=== PATIENT | female | born 2000 | race Hispanic/Latino ===

== ENCOUNTER 2023-01-10 20:11 | Inpatient (IN) | payer MEDICAID, OTHER ==
[2023-01-10] MEDS ORDERED: hydrALAZINE 20 MG/ML VIAL SLOW IVP PRN (20:35)
[2023-01-10 21:09] VITALS: BMI 28.7
[2023-01-10] MEDS: Lactated Ringer's 1,000 ML IV SCH (21:48)
[2023-01-10] MEDS ORDERED: Lactated Ringer's 1,000 ML IV SCH ×2 (22:00→23:30)
[2023-01-10] MEDS ORDERED: fentaNYL 50 mcg/mL 1 mL Vial ONE (23:29)
[2023-01-10] MEDS ORDERED: fentaNYL 50 mcg/mL 1 mL Vial SLOW IVP SCH (23:45)
[2023-01-10] MEDS ORDERED: Carboprost 250 MCG/ML AMP IM PRN (23:56)
[2023-01-10] MEDS ORDERED: Tranexamic Acid 1,000 MG/10 ML VIAL IVP PRN (23:56)
[2023-01-10] MEDS ORDERED: Lidocaine 1% (PF) 30 ML VIAL SC PRN (23:56)
[2023-01-10] MEDS ORDERED: Promethazine HCl 25 MG/ML VIAL IM PRN (23:56)
[2023-01-10] MEDS ORDERED: Misoprostol 200 MCG TAB PR PRN (23:56)
[2023-01-10] MEDS ORDERED: Methylergonovine 0.2 MG/ML VIAL IM PRN (23:56)
[2023-01-10] MEDS ORDERED: Ondansetron PF 4 MG/2 ML Vial IVP PRN (23:56)
[2023-01-10] MEDS ORDERED: NS w/ Oxytocin 30 units 500 ML IV SCH ×2 (23:59)
[2023-01-11 00:13] LABS: Hemoglobin 10.1 g/dL (12.0-15.5); Mean Corpuscular Hemoglobin 24.8 pg (27.0-33.0); Mean Corpuscular Volume 77.5 fl (81.6-98.3); Platelet Count 288 10x3/uL (150-450); RBC Distribution Width 14.7 % (11.5-14.5); Red Blood Cell (RBC) Count 4.08 10x6/uL (3.90-5.03); White Blood Cell (WBC) Count 7.2 10x3/uL (3.5-10.5)
[2023-01-11 00:15] LABS: Fetal Membranes Rupture No Membranes Rupture (No Rupture)
[2023-01-11] MEDS ORDERED: fentaNYL/Ropivacaine Epidural 100 ML ONE (00:21)
[2023-01-11 00:48] LABS: Syphilis Antibody Nonreactive (Nonreactive); Syphilis Antibody Index 0.03 S/CO (<1.00 Non-Reactive)
[2023-01-11 00:49] LABS: HBSAg Index 0.17 S/CO (0-0.99); Hep B Surf Ag - L&D Non-Reactive S/CO (NonReactive)
[2023-01-11] MEDS ORDERED: diphenhydrAMINE 50 MG/ML VIAL IVP PRN (01:07)
[2023-01-11] MEDS ORDERED: Moisturizing Cream (Eucerin) 113 GM JAR TOP PRN (01:07)
[2023-01-11] MEDS ORDERED: Naloxone HCl 0.4 mg/ml Vial IVP PRN ×2 (01:07)
[2023-01-11] MEDS ORDERED: Lactated Ringer's 500 ML IV PRN (01:07)
[2023-01-11] MEDS ORDERED: ePHEDrine Sulfate 50 MG/10 ML VIAL SLOW IVP PRN (01:07)
[2023-01-11] MEDS ORDERED: Ondansetron PF 4 MG/2 ML Vial IVP PRN (01:07)
[2023-01-11] MEDS ORDERED: Promethazine HCl 25 MG/ML VIAL IM PRN (01:07)
[2023-01-11] MEDS ORDERED: Communication Order-Pharmacy FS SCH (01:15)
[2023-01-11] MEDS ORDERED: fentaNYL 2 mcg/Ropivacaine 0.2% Epidural 100 ML CADD EPIDURAL SCH (01:15)
[2023-01-11] MEDS ORDERED: fentaNYL 50 mcg/mL 1 mL Vial ONE (10:43)
[2023-01-11] MEDS ORDERED: Bisacodyl 10 MG SUPP PR PRN (16:44)
[2023-01-11] MEDS ORDERED: Boostrix 0.5 ML (Tdap) VIAL (>/=7 yrs of age) IM ONE (16:44)
[2023-01-11] MEDS ORDERED: hydrALAZINE 20 MG/ML VIAL SLOW IVP PRN (16:44)
[2023-01-11] MEDS ORDERED: Milk Of Magnesia 30 ML UDCUP PO PRN (16:44)
[2023-01-11] MEDS: Acetaminophen 325 MG TAB PO PRN (17:17)
[2023-01-11] MEDS: Ibuprofen 800 MG TAB PO SCH (19:58)
[2023-01-11] MEDS: Docusate 100 MG CAP PO SCH (19:58)
[2023-01-12] MEDS: Acetaminophen 325 MG TAB PO PRN (00:27)
[2023-01-12 03:13] LABS: #Eosinphils 0.1 10x3/uL (0.0-0.5); %Basophils 0.3 % (0.0-2.0); %Eosinophils 0.6 % (0.0-6.0); %Lymphocytes 16.8 % (18.0-47.0); %Monocytes 6.2 % (0.0-10.0); %Neutrophils 75.4 % (40.0-75.0); Hemoglobin 9.2 g/dL (12.0-15.5); Mean Corpuscular HGB CONC 31.9 g/dL (32.0-36.0); Mean Corpuscular Hemoglobin 24.8 pg (27.0-33.0); Mean Corpuscular Volume 77.6 fl (81.6-98.3); Mean Platelet Volume 11.6 fl (7.4-10.4); Platelet Count 250 10x3/uL (150-450); RBC Distribution Width 15.9 % (11.5-14.5); Red Blood Cell (RBC) Count 3.71 10x6/uL (3.90-5.03); White Blood Cell (WBC) Count 15.9 10x3/uL (3.5-10.5)
[2023-01-12] MEDS: Ferrous Sulfate 325 MG TAB PO SCH ×3 (04:14→18:11)
[2023-01-12] MEDS: Ibuprofen 800 MG TAB PO SCH ×2 (04:17→14:12)
[2023-01-12] MEDS ORDERED: Bupivacaine PF 0.5% 30 ML VIAL ONE (07:00)
[2023-01-12] MEDS ORDERED: Lidocaine 2% MPF 10 ML AMP (For Epidural Use) ONE (07:00)
[2023-01-12] MEDS: Lactated Ringer's 1,000 ML IV SCH (07:33)
[2023-01-12] MEDS: Docusate 100 MG CAP PO SCH (08:34)
[2023-01-12 16:15] VITALS: BP 103/59; TEMP 98
== END 2023-01-12 19:36 | disposition home or self-care (01) | DRG 806 ==
LOC: CSHLD/OP 20:11 → EDBD 20:11 → CSHLD 23:56 → CSHPED 01-11 17:10
PROVIDERS: ADMIT Obstetrics & Gynecology; ATTEND Obstetrics & Gynecology
PROC: 10E0XZZ Delivery of Products of Conception, External Approach (ICD-10-PCS; principal; 2023-01-11)
PROC: 10907ZC Drainage of Amniotic Fluid, Therapeutic from Products of Conception, Via Natural or Artificial Opening (ICD-10-PCS; 2023-01-11)
PROC: 10H07YZ Insertion of Other Device into Products of Conception, Via Natural or Artificial Opening (ICD-10-PCS; 2023-01-11)
PROC: 0UQGXZZ Repair Vagina, External Approach (ICD-10-PCS; 2023-01-11)
PROC: 3E033VJ Introduction of Other Hormone into Peripheral Vein, Percutaneous Approach (ICD-10-PCS; 2023-01-11)
DX: O34.211 Maternal care for low transverse scar from previous cesarean delivery (principal); O72.1 Other immediate postpartum hemorrhage; Z37.0 Single live birth; Z3A.38 38 weeks gestation of pregnancy
CPT/HCPCS: 36415; 51702; 84112; 85025; 85027; 86780; 86850; 86900; 86901; 87340; 87480; 87510; 87660; 99285; J3010; J7120; S0020